=== PATIENT | male | born 1990 | race Caucasian/White ===

== ENCOUNTER 2023-07-15 08:40 | Emergency (ER) | payer OTHER ==
[~2023-07-15] VITALS: Ht 182.9 cm; Wt 97.5 kg
[2023-07-15] MEDS ORDERED: WELLBUTRIN SR100 MG PO (08:56)
[2023-07-15] MEDS ORDERED: WELLBUTRIN XL300 MG PO (08:56)
[2023-07-15] MEDS ORDERED: HYDROXYZINE HCL50 MG PO (08:57)
[2023-07-15] MEDS ORDERED: KETOROLAC TROMETHAMINE 15 MG VIAL IM STA (10:15)
[2023-07-15] MEDS ORDERED: CELEBREX200MG PO (12:16)
== END 2023-07-15 13:03 | disposition home or self-care (01) ==
LOC: ER 08:41
DX: M10.9 Gout, unspecified (principal)